=== PATIENT | male | born 1955 | race Caucasian/White ===

== ENCOUNTER → 2017-09-28 13:35 | Outpatient (POV) | payer OTHER, SELFPAY | PROVIDERS: Visit Provider Internal Medicine Nephrology | DX: Z00.00 Encounter for general adult medical examination without abnormal findings (principal) ==

== ENCOUNTER 2018-03-28 16:28 | Inpatient (IN) ==
[2018-03-28 16:46] LABS: Basophils # 0.1 K/mm3 (0-0.2); Basophils % 0.8 % (0.1-2.0); Eosinophils # 0.2 K/mm3 (0.0-0.4); Eosinophils % 2.4 % (0.1-12.0); Lymphocytes # 1.3 K/mm3 (0.7-4.5); Lymphocytes % 13.8 K/mm3 (10-50); Mean Corpuscular Hemoglobin 28.5 pg (27.0-31.2); Mean Corpuscular Volume 89.2 fl (80-94); Mean Platelet Volume 9.3 fl (7.4-10.4); Monocytes # 0.6 K/mm3 (0.1-1.0); Neutrophils # 7.1 K/mm3 (1.8-7.8); Neutrophils % 77.1 % (37.0-80.0); Platelet Count 327 K/mm3 (142-424); Red Cell Distribution Width 15.2 % (11.5-17.5); White Blood Count 9.2 K/mm3 (4.8-10.8)
[2018-03-28 16:51] LABS: Hemoglobin 6.6 g/dL (14.1-18.0)
[2018-03-28 16:52] LABS: Hematocrit 20.5 % (42.0-52.0)
[2018-03-28 16:56] LABS: Albumin Level 3.4 gm/dL (3.4-5.0); Bilirubin,Total 0.3 mg/dL (0.2-1.0); Calcium 8.4 mg/dL (8.5-10.1); Globulin 3.4 gm/dl (1.3-3.2); Total Protein,Serum 6.8 gm/dL (6.4-8.2)
--- NOTE | 2018-03-28 17:01 | Emergency Department Note ---
ED Disposition Clinical Impression: Upper GI bleed, CVA, old, cognitive deficits Disposition: Still a Patient Condition on Discharge: Fair - Critical Care Critical Care Time: No Attestation: On , the high probability of a clinically significant, sudden or life threatening deterioration of the following system(s) required my full and direct attention, intervention and personal management. The time I documented below is in addition to time spent performing reported procedures but includes the following listed in this critical care notation. Medical Decision Making - Lalo Inquiry Pt receiving controlled substance: No Lalo was queried for this patient: No Vital Signs: 03/28/18 16:28 03/28/18 17:07 Temperature 97.8 F Temperature Source Oral Pulse Rate [Left Radial] 80 78 Respiratory Rate 20 Blood Pressure [Right Arm] 129/56 L 117/66 Blood Pressure Mean [Right Arm] 80 83 Blood Pressure Source [Right Arm] Automatic Cuff Automatic Cuff Blood Pressure Position [Right Arm] Sitting Sitting 02 Sat by Pulse Oximetry 100 100 Oxygen Delivery Method Room Air Room Air - Lab Data Lab Results 03/28/18 16:25: WBC 9.2, RBC 2.30 L, Hgb 6.6 L*, Hct 20.5 L*, MCV 89.2, MCH 28.5, MCHC 32.0, RDW 15.2, Plt Count 327, MPV 9.3, Neut % (Auto) 77.1, Lymph % (Auto) 13.8, [place] % (Auto) 6.0, Eos % (Auto) 2.4, Baso % (Auto) 0.8, Neut # (Auto) 7.1, Lymph # (Auto) 1.3, [place] # (Auto) 0.6, Eos # (Auto) 0.2, Baso # (Auto) 0.1 03/28/18 16:25: Sodium 138, Potassium 4.0, Chloride 106, Carbon Dioxide 18 L, Anion Gap 18.0 H, BUN 106 H*, Creatinine 1.97 H, Estimated Creat Clear 51, Estimated GFR 35 L, Est GFR ( Amer) 42 L, Glucose 113 H, Calcium 8.4 L, Total Bilirubin 0.3, AST 14 L, ALT 25, Alkaline Phosphatase 65, Total Protein 6.8, Albumin 3.4, Globulin 3.4 H, Albumin/Globulin Ratio 1.0 L 03/28/18 16:25: PT 10.7, INR 1.04, APTT 21.9 L 03/28/18 16:25: Magnesium 2.5 H 03/28/18 16:36: POC Glucose 120 H 03/28/18 16:55: Stool Occult Blood Positive A Result diagrams: 03/28/18 16:25 03/28/18 16:25 Orders (Tests/Meds): ED MEDICATIONS Generic Name Dose Route Start Last Admin Trade Name Freq PRN Reason Stop Dose Admin Pantoprazole Sodium 80 mg/ 100 mls @ 10 mls/hr 03/28/18 17:00 Sodium Chloride IV 03/31/18 16:59 .Q10H HANNY Pantoprazole Sodium 80 mg/ 100 mls @ 100 mls/hr 03/28/18 17:07 Sodium Chloride IV 03/28/18 18:06 ONCE ONE Discontinued Medications Generic Name Dose Route Start Last Admin Trade Name Freq PRN Reason Stop Dose Admin Famotidine 20 mg 03/28/18 16:56 03/28/18 17:23 Pepcid 20mg/2ml Vial IV 03/28/18 16:57 20 mg ONCE ONE Administration Pantoprazole Sodium 80 mg/ 100 mls @ 10 mls/hr 03/28/18 17:57 Sodium Chloride IV 03/31/18 17:56 .Q10H HANNY Pantoprazole Sodium 80 mg/ 100 mls @ 100 mls/hr 03/28/18 16:56 03/28/18 17:01 Sodium Chloride IV 03/28/18 17:55 Not Given ONCE ONE ORDERS Category Date Time Status Red Blood Cells Stat BBK 03/28/18 16:57 Ordered Type and Screen Stat BBK 03/28/18 16:57 Ordered Acute abdomen XR series [XR acute abdomen series] Stat Exams 03/28/18 16:56 Taken Occult Blood,Stool Stat Lab 03/28/18 16:55 Ordered Medical Decision Narrative: I spoke with Dr. Beard the surgeon who recommended for the patient to be n.p.o. after midnight for endoscopy at 7 AM[address] I spoke with Dr. boyer who agreed to admit the patient for stepdown bed. The patient is unsure of his date of which is causing some confusion regarding his blood. I have been no old records on him due to this incorrect identified. Weakness HPI - General Chief complaint: Weakness Stated complaint: Weakness Time Seen by Provider: 03/28/18 16:30 Mode of Arrival: EMS Limitations: Physical Limitations Description of Symptoms (Recalled from ER Triage Doc. by RN): Pt states that he was feeling really weak. Per EMS pt was really pale and lethargic upon arrival, pt was given bolus of NS and thimine and pt is A&O at this time with pinkish color. Pt states he hasnt ate in 3 days but he has still be taking his insulin - History of Present Illness HPI Narrative: 63 years old white male with a history of strokes who has been lacking appetite for the past 3 days and gradually getting weak. Upon EMS arrival his blood pressure was 90/60 mmhg was given 1 L of fluid with elevation of his blood pressure at 125/65mmhg patient feels better and has a better appetite. He continues to take his insulin with no hypoglycemia. He denies having chest pain abdominal pain nausea vomiting hematemesis coffee- ground emesis melanotic stool or bleeding per rectum. MD Complaint: generalized weakness Onset (ago): day(s) (3-day.) Duration: constant Location: generalized Severity: mild Relieving factors: none Exacerbating factors: none Associated symptoms: denies other symptoms - Related Data Allergies Allergy/AdvReac Type Severity Reaction Status Date / Time Penicillins Allergy Verified 03/28/18 16:38 [facility] History I have reviewed the patient's past medical history: Yes Medical History: Reports:: Diabetes Mellitus Type 2 Denies:: Diabetes Mellitus Type 1 - Social History Alcohol Intake: never - Psychiatric History Expresses thoughts of harming self/others: None Suicide Plan Description: No Plan ROS Obtained: Yes All systems reviewed & no additional complaints Physical Exam - General General appearance: alert, in no apparent distress - Head Head exam: atraumatic, normocephalic, normal inspection - Eye Eye exam: Present: normal appearance, PERRL, EOMI. Absent: scleral icterus - ENT ENT exam: Present: normal exam, normal oropharynx, mucous membranes moist, TM's normal bilaterally, normal external ear exam - Neck Neck exam: Present: normal inspection, full ROM, trachea midline. Absent: tenderness, meningismus, lymphadenopathy - Chest Chest inspection: Present: normal inspection, symmetric chest wall rise. Absent: tenderness - Respiratory Respiratory exam: Present: normal lung sounds bilaterally. Absent: respiratory distress - Cardiovascular Cardiovascular exam: Present: regular rate, normal rhythm, normal heart sounds. Absent: JVD - Abdominal Exam Abdominal exam: Present: soft, normal bowel sounds. Absent: distention, tenderness, guarding, rebound, rigidity - Rectal Exam Rectal exam: Present: normal inspection, normal rectal tone, heme (+) stool, normal prostate. Absent: fecal impaction, hemorrhoids, mass, tenderness, prostate tenderness - Extremities Exam Extremities exam: Present: normal inspection, full ROM, normal capillary refill. Absent: calf tenderness - Back Exam Back exam: Present: normal inspection. Absent: tenderness, CVA tenderness (R), CVA tenderness (L), muscle spasm, paraspinal tenderness, vertebral tenderness - Neurological Exam Neurological exam: Present: alert, oriented X3, CN II-XII intact, normal gait, motor sensory deficit, reflexes normal - Psychiatric Psychiatric exam: Present: normal affect, normal mood - Skin Skin exam: Present: warm, dry, intact, normal color - Lymphatic Lymphatic Findings: no adenopathy
[2018-03-28 17:14] LABS: Activated Partial Thrombo Time 21.9 seconds (23.6-34.0); INR 1.04 (0.9-1.1); Prothrombin Time 10.7 seconds (9.4-11.8)
[2018-03-29 00:51] LABS: Hemoglobin 8.4 g/dL (14.1-18.0)
[2018-03-29 00:52] LABS: Hematocrit 25.1 % (42.0-52.0)
[2018-03-29 05:37] LABS: Basophils # 0.1 K/mm3 (0-0.2); Basophils % 0.8 % (0.1-2.0); Eosinophils # 0.1 K/mm3 (0.0-0.4); Eosinophils % 2.2 % (0.1-12.0); Hemoglobin 8.5 g/dL (14.1-18.0); Lymphocytes % 15.9 K/mm3 (10-50); Mean Corpuscular HGB Conc 33.1 g/dL (31.8-35.4); Mean Corpuscular Hemoglobin 28.4 pg (27.0-31.2); Monocytes # 0.4 K/mm3 (0.1-1.0); Monocytes % 6.5 % (1.7-9.3); Neutrophils # 4.5 K/mm3 (1.8-7.8); Neutrophils % 74.6 % (37.0-80.0); Platelet Count 252 K/mm3 (142-424); Red Blood Count 2.98 M/mm3 (4.60-6.20); Red Cell Distribution Width 16.1 % (11.5-17.5)
[2018-03-29 05:39] LABS: Hematocrit 25.6 % (42.0-52.0)
[2018-03-29 05:45] LABS: Anion Gap 14.9 mEq/L (5-15); Calcium 8.5 mg/dL (8.5-10.1); Potassium 3.9 mmoL/L (3.5-5.1)
--- NOTE | 2018-03-29 06:23 | Consult Report ---
*Admission Date: 03/28/18 *Chief complaint: weakness *History of present illness: This is a 63-year-old gentleman seen in consultation from his primary service after presenting to the emergency department with weakness. Evaluation revealed significant anemia and heme positive stools. Surgical service was consulted for evaluation. Please see forwarded copy of HPI from emergency department evaluation below: 63 years old white male with a history of strokes who has been lacking appetite for the past 3 days and gradually getting weak. Upon EMS arrival his blood pressure was 90/60 mmhg was given 1 L of fluid with elevation of his blood pressure at 125/65mmhg patient feels better and has a better appetite. He continues to take his insulin with no hypoglycemia. He denies having chest pain abdominal pain nausea vomiting hematemesis coffee- ground emesis melanotic stool or bleeding per rectum. Review of Systems - Constitutional Reports anorexia - Eyes Denies itchy eyes - ENT Denies change in voice - *Cardiovascular Denies chest pain - *Respiratory Denies cough - *Gastrointestinal Denies abdominal pain, Denies nausea, Denies vomiting - *Genitourinary Denies blood in urine - *Musculoskeletal Denies joint swelling - *Neurologic Reports abnormal walking, Reports unsteadiness - Psychiatric Denies anxiety - Endocrine Denies cold intolerance - Hematologic/Lymphatic Denies easy bleeding - Allergic/Immunologic Denies GI upset with certain foods [facility] History Medical History: Reports:: Diabetes Mellitus Type 2 Denies:: Cancer, Diabetes Mellitus Type 1, MRSA Amputation: No Fractures: No - *Social History Educational Level: Attended High School Smoking Status: Former smoker Alcohol Intake: former Occupational Status: unemployed - Psychiatric History Expresses thoughts of harming self/others: None Suicide Plan Description: No Plan Meds Home Medications Medication Instructions Recorded Confirmed Type Atorvastatin Calcium [Atorvastatin 80 mg PO HS 03/28/18 03/28/18 History 80mg Tab] Canagliflozin [Invokana] 300 mg PO DAILY 03/28/18 03/28/18 History Carvedilol [Carvedilol 12.5mg Tab] 12.5 mg PO DAILY 03/28/18 03/28/18 History Clopidogrel Bisulfate [Plavix 75mg 75 mg PO DAILY 03/28/18 03/28/18 History Tab] Fluoxetine HCl [Prozac] 40 mg PO DAILY 03/28/18 03/28/18 History Gemfibrozil 600 mg PO DAILY 03/28/18 03/28/18 History Insulin NPH Hum/Reg Insulin Hm 100 unit SQ BID 03/28/18 03/28/18 History [Humulin 70/30 Kwikpen] Lisinopril/Hydrochlorothiazide 1 tab PO DAILY 03/28/18 03/28/18 History [Lisinopril-Hctz 20-12.5 mg Tab] glipiZIDE [Glucotrol XL 5mg tablet] 5 mg PO DAILY 03/28/18 03/28/18 History Allergies Allergy/AdvReac Type Severity Reaction Status Date / Time Penicillins Allergy Verified 03/28/18 16:38 Exam Vital signs and Labs for Last 24 Hours: Temp Pulse Resp BP Pulse Ox 97.4 F L 80 17 113/58 L 100 03/29/18 00:23 03/29/18 04:00 03/29/18 00:23 03/29/18 02:00 03/29/18 03:14 Laboratory Results - last 24 hr 03/28/18 16:25: WBC 9.2, RBC 2.30 L, Hgb 6.6 L*, Hct 20.5 L*, MCV 89.2, MCH 28.5, MCHC 32.0, RDW 15.2, Plt Count 327, MPV 9.3, Neut % (Auto) 77.1, Lymph % (Auto) 13.8, [place] % (Auto) 6.0, Eos % (Auto) 2.4, Baso % (Auto) 0.8, Neut # (A uto) 7.1, Lymph # (Auto) 1.3, [place] # (Auto) 0.6, Eos # (Auto) 0.2, Baso # (Auto) 0.1 03/28/18 16:25: Sodium 138, Potassium 4.0, Chloride 106, Carbon Dioxide 18 L, Anion Gap 18.0 H, BUN 106 H*, Creatinine 1.97 H, Estimated Creat Clear 51, Estimated GFR 35 L, Est GFR ( Amer) 42 L, Glucose 113 H, Calcium 8.4 L, Total Bilirubin 0.3, AST 14 L, ALT 25, Alkaline Phosphatase 65, Total Protein 6.8, Albumin 3.4, Globulin 3.4 H, Albumin/Globulin Ratio 1.0 L 03/28/18 16:25: PT 10.7, INR 1.04, APTT 21.9 L 03/28/18 16:25: Magnesium 2.5 H 03/28/18 16:36: POC Glucose 120 H 03/28/18 16:55: Stool Occult Blood Positive A 03/28/18 18:40: Blood Type AB Positive, Antibody Screen Negative, Crossmatch (AHG) See Detail 03/28/18 20:52: POC Glucose 160 H 03/29/18 00:30: Hgb 8.4 L D, Hct 25.1 L 03/29/18 05:21: WBC 6.0 D, RBC 2.98 L D, Hgb 8.5 L, Hct 25.6 L, MCV 86.0, MCH 28.4, MCHC 33.1, RDW 16.1, Plt Count 252, MPV 10.0, Neut % (Auto) 74.6, Lymph % (Auto) 15.9, [place] % (Auto) 6.5, Eos % (Auto) 2.2, Baso % (Auto) 0.8, Neut # (Auto) 4.5, Lymph # (Auto) 1.0, [place] # (Auto) 0.4, Eos # (Auto) 0.1, Baso # (Auto) 0.1 03/29/18 05:21: Sodium 141, Potassium 3.9, Chloride 110 H, Carbon Dioxide 20 L, Anion Gap 14.9, BUN 78 H D, Creatinine 1.82 H, Estimated Creat Clear 54, Estimated GFR 38 L, Est GFR ( Amer) 46 L, Glucose 161 H D, Calcium 8.5 I & O for Last 24 hours: Intake & Output 03/26/18 03/27/18 03/28/18 03/29/18 11:59 11:59 11:59 11:59 Intake Total 216 / 216 Output Total 1940 / 194 Balance -1724 / -1724 Weight 198 lb 8 oz - Constitutional no acute distress - *Routine Respiratory Exam Absent: respiratory distress - *Routine Cardiovascular Exam Present: RRR - *Routine Abdominal Exam Present: soft Results - Labs 03/29/18 05:21 03/29/18 05:21 Laboratory Results - last 24 hr 03/28/18 16:25: WBC 9.2, RBC 2.30 L, Hgb 6.6 L*, Hct 20.5 L*, MCV 89.2, MCH 28.5, MCHC 32.0, RDW 15.2, Plt Count 327, MPV 9.3, Neut % (Auto) 77.1, Lymph % (Auto) 13.8, [place] % (Auto) 6.0, Eos % (Auto) 2.4, Baso % (Auto) 0.8, Neut # (Auto) 7.1, Lymph # (Auto) 1.3, [place] # (Auto) 0.6, Eos # (Auto) 0.2, Baso # (Auto) 0.1 03/28/18 16:25: Sodium 138, Potassium 4.0, Chloride 106, Carbon Dioxide 18 L, Anion Gap 18.0 H, BUN 106 H*, Creatinine 1.97 H, Estimated Creat Clear 51, Estimated GFR 35 L, Est GFR ( Amer) 42 L, Glucose 113 H, Calcium 8.4 L, Total Bilirubin 0.3, AST 14 L, ALT 25, Alkaline Phosphatase 65, Total Protein 6.8, Albumin 3.4, Globulin 3.4 H, Albumin/Globulin Ratio 1.0 L 03/28/18 16:25: PT 10.7, INR 1.04, APTT 21.9 L 03/28/18 16:25: Magnesium 2.5 H 03/28/18 16:36: POC Glucose 120 H 03/28/18 16:55: Stool Occult Blood Positive A 03/28/18 18:40: Blood Type AB Positive, Antibody Screen Negative, Crossmatch (AHG) See Detail 03/28/18 20:52: POC Glucose 160 H 03/29/18 00:30: Hgb 8.4 L D, Hct 25.1 L 03/29/18 05:21: WBC 6.0 D, RBC 2.98 L D, Hgb 8.5 L, Hct 25.6 L, MCV 86.0, MCH 2 8.4, MCHC 33.1, RDW 16.1, Plt Count 252, MPV 10.0, Neut % (Auto) 74.6, Lymph % (Auto) 15.9, [place] % (Auto) 6.5, Eos % (Auto) 2.2, Baso % (Auto) 0.8, Neut # (Auto) 4.5, Lymph # (Auto) 1.0, [place] # (Auto) 0.4, Eos # (Auto) 0.1, Baso # (Auto) 0.1 03/29/18 05:21: Sodium 141, Potassium 3.9, Chloride 110 H, Carbon Dioxide 20 L, Anion Gap 14.9, BUN 78 H D, Creatinine 1.82 H, Estimated Creat Clear 54, Estimated GFR 38 L, Est GFR ( Amer) 46 L, Glucose 161 H D, Calcium 8.5 Assessment and Plan (1) Gastrointestinal hemorrhage Current visit: Yes Status: Acute Category: Medical Code(s): K92.2 - Gastrointestinal hemorrhage, unspecified Continue to hold Plavix for now Serial hemoglobin as ordered by primary service Esophagogastroduodenoscopy scheduled for 7:00 this morning. The patient seemingly understands the risks and benefits and agrees to proceed.
--- NOTE | 2018-03-29 07:06 | Progress Note ---
[facility] Anesthesia Checklist - Patient Identification Patient Identification: Arm Band, Verbal (Name & ) - Structural Data Admitted From: Inpatient Planned Operative Procedure/s: Colonoscopy Consent for Planned Operative Procedure(s) Verified: Yes Verified Documents: Surgical Consent, History and Physical - NPO Status Verified Time NPO: 00:00 - Additional verifications Fingerstick Blood Glucose: 165 Anesthesia Reactions: No - Airway Assessment C-Spine Mobility Assessed: Yes TMJ Mobility Assessed: Yes Dentition: Edentulous - Neurological Assessment Level of Consciousness: Awake Hx Seizures: No Numbness or tingling in extremities: No - Anesthesia Plan Anesthesia Risk discussed: Yes Anesthesia Plan: Verified ASA Class: II Anesthesia Type: MAC [facility] History I have reviewed the patient's past medical history: Yes Medical History: Reports:: Cerebrovascular Accident (CVAx4 (last was 2 years ago)), Diabetes Mellitus Type 2, Hypertension Denies:: Cancer, Diabetes Mellitus Type 1, MRSA Other Surgeries: Yes: No Previous Surgery Amputation: No Fractures: No - *Social History Educational Level: Attended High School Smoking Status: Former smoker Alcohol Intake: former Occupational Status: unemployed - Psychiatric History Expresses thoughts of harming self/others: None Suicide Plan Description: No Plan
--- NOTE | 2018-03-29 07:31 | Procedure Note ---
- Procedure: Date: 03/29/18 Procedure Performed:: Esophagogastroduodenoscopy with biopsy Indications:: Gastrointestinal hemorrhage Performing Provider:: Rui Beard MD Referring Provider:: Dr. Giles Sedation:: Monitored anesthesia care Procedure:: After informed consent was obtained the patient was taken to the endoscopy suite. Sedation ensued after the patient was transferred to the left lateral decubitus position. Pulse, blood pressure, and oxygen saturation were monitored throughout the procedure. The endoscope was advanced beyond the duodenal bulb. Retroflexion within the gastric lumen was accomplished. The gastroscope was carefully removed and the patient was transferred to recovery in stable condition. Please see "findings" and "specimens" below for detail. Findings:: GE junction at 42 cm Mild gastritis Gastric cardia polyp Lobulated duodenitis Mild bile reflux Specimens:: Duodenal bulb biopsies (lobulated duodenitis) Antral biopsy Gastric cardia polyp biopsies Recommendations:: Follow-up pending pathology Ongoing evaluation with regard to gastrointestinal hemorrhage Complications:: No immediate Estimated blood obtained (mL): 1
--- NOTE | 2018-03-29 07:53 | Pharmacy Consult Notes ---
[facility] Pharmacy VTE Monitoring - Patient Demographics Admission date: 03/29/18 Report Date: 03/29/18 Time: 07:53 Allergies/Adverse Reactions: Patient Allergies Penicillins Allergy (Verified 03/28/18 16:38) Height: 1.83 m Weight: 90.038 kg Patient Problems: Current Active Problems Upper GI bleed (Acute) CVA, old, cognitive deficits (Acute) Gastrointestinal hemorrhage (Acute) - VTE Risk Labs: VTE Related Lab Results Hgb 8.5 g/dL (14.1-18.0) L 03/29/18 05:21 Hct 25.6 % (42.0-52.0) L 03/29/18 05:21 Plt Count 252 K/mm3 (142-424) 03/29/18 05:21 PT 10.7 seconds (9.4-11.8) 03/28/18 16:25 INR 1.04 (0.9-1.1) 03/28/18 16:25 APTT 21.9 seconds (23.6-34.0) L 03/28/18 16:25 BUN 78 mg/dL (7-18) H D 03/29/18 05:21 Creatinine 1.82 mg/dL (0.70-1.30) H 03/29/18 05:21 Estimated Creat Clear 54 mL/min (0-300) 03/29/18 05:21 Was VTE Risk Assessment Performed: Yes VTE Score: 1 VTE Risk Level: Very Low Risk Clinical Trial Participant: No - Prophylaxis VTE Prophylaxis Ordered?: Yes Types of VTE Prophylaxis: TEDS Knee High
--- NOTE | 2018-03-29 08:46 | History & Physical Report ---
*Admission Date: 03/29/18 <Lorena Murphy 03/29/18 08:46> *Chief complaint: Dizziness and unable to walk <KatherineLorena 03/29/18 08:46> *History of present illness: Mr. Lopez is a 63-year-old male with a history of diabetes hypertension and CVA who presented to [facility] via ambulance after inability to walk and weakness. He states that he has been dizzy for the past 3 days. He states he did vomit 3 days ago and is vomitus was black. He denies any diar argelia,, hematemesis, radha bleeding or melena. He states that his mid abdomen did hurt. With evaluation in the emergency room hemoglobin was found to be low and he received 2 units of packed red blood cells. He was then admitted for further evaluation and treatment. He has had an EGD this morning by Dr. Yu and was noted to have a gastritis and no active bleeding. Patient denies abdominal pain this morning. He is not nauseated and is very hungry and would like breakfast. <Lorena Murphy 03/29/18 09:02> [facility] History Medical History: Reports:: Cerebrovascular Accident (CVAx4 (last was 2 years ago)), Depression, Diabetes Mellitus Type 2, Hypertension Denies:: Cancer, Diabetes Mellitus Type 1, MRSA, Seizures <Lorena Murphy 03/29/18 09:02> Other Surgeries: Yes: No Previous Surgery <Lorena Murphy 03/29/18 08:46> Amputation: No <Lorena Murphy 03/29/18 08:46> Fractures: No <Lorena Murphy 03/29/18 08:46> Comment: Right arm reconstruction 1992; teeth extracted 02/2013 <Lorena Murphy 03/29/18 09:02> - *Social History Educational Level: Attended High School <Lorena Murphy 03/29/18 08:46> Smoking Status: Former smoker <Lorena Murphy 03/29/18 08:46> Alcohol Intake: former <Lorena Murphy 03/29/18 08:46> Occupational Status: unemployed <Lorena Murphy 03/29/18 08:46> - Psychiatric History Expresses thoughts of harming self/others: None <Lorena Murphy 03/29/18 08:46> Suicide Plan Description: No Plan <Lorena Murphy 03/29/18 08:46> Comment: History of mental illnesses <Lorena Murphy 03/29/18 09:02> Review of Systems - Constitutional Reports fatigue, Reports lack of energy, Reports weakness, Denies body ache(s) <Lorena Murphy 03/29/18 09:02> - ENT Reports dizziness, Denies ear pain, Denies sore throat <Lorena Murphy 03/29/18 09:02> - *Cardiovascular Denies chest pain, Denies irregular heart rhythm, Denies foot swelling, Denies fast heart rate <Lorena Murphy 03/29/18 09:02> - *Respiratory Denies chest congestion, Denies cough, Denies shortness of breath <Lorena Murphy 03/29/18 09:02> - *Gastrointestinal Reports abdominal pain, Reports coffee ground vomit, Reports black, tarry stools, Reports vomiting, Denies change in bowel habits, Denies change in stools, Denies constipation, Denies heartburn, Denies bright, red blood in stools, Denies nausea <Lorena Murphy 03/29/18 09:02> - *Genitourinary Denies difficulty urinating <Lorena Murphy 03/29/18 09:02> - *Musculoskeletal Reports abnormal walking, Reports muscle weakness, Denies joint pain <Lorena Murphy 03/29/18 09:02> - *Neurologic Reports abnormal walking, Reports unsteadiness, Reports dizziness <Lorena Murphy 03/29/18 09:02> Meds Home Medications Medication Instructions Recorded Confirmed Type Atorvastatin Calcium [Atorvastatin 80 mg PO HS 03/28/18 03/28/18 History 80mg Tab] Canagliflozin [Invokana] 300 mg PO DAILY 03/28/18 03/28/18 History Carvedilol [Carvedilol 12.5mg Tab] 12.5 mg PO BID 03/28/18 03/29/18 History Clopidogrel Bisulfate [Plavix 75mg 75 mg PO DAILY 03/28/18 03/28/18 History Tab] Fluoxetine HCl [Prozac] 40 mg PO DAILY 03/28/18 03/28/18 History Gemfibrozil 600 mg PO BID 03/28/18 03/29/18 History Insulin NPH Hum/Reg Insulin Hm 100 unit SQ BID 03/28/18 03/28/18 History [Humulin 70/30 Kwikpen] Lisinopril/Hydrochlorothiazide 1 tab PO DAILY 03/28/18 03/28/18 History [Lisinopril-Hctz 20-12.5 mg Tab] glipiZIDE [Glucotrol XL 5mg tablet] 5 mg PO DAILY 03/28/18 03/28/18 History <JulyErika - 03/29/18 12:17> Allergies Allergy/AdvReac Type Severity Reaction Status Date / Time Penicillins [PENICILLINS] Allergy Mild Hives Verified 03/29/18 09:36 <JulyErika - 03/29/18 12:17> Exam Vital signs and Labs for Last 24 Hours: Temp Pulse Resp BP Pulse Ox 98.7 F 82 15 117/61 100 03/29/18 09:15 03/29/18 11:45 03/29/18 11:45 03/29/18 11:45 03/29/18 11:45 Laboratory Results - last 24 hr 03/28/18 16:25: WBC 9.2, RBC 2.30 L, Hgb 6.6 L*, Hct 20.5 L*, MCV 89.2, MCH 28.5, MCHC 32.0, RDW 15.2, Plt Count 327, MPV 9.3, Neut % (Auto) 77.1, Lymph % (Auto) 13.8, Mcintosh % (Auto) 6.0, Eos % (Auto) 2.4, Baso % (Auto) 0.8, Neut # (Auto) 7.1, Lymph # (Auto) 1.3, Mcintosh # (Auto) 0.6, Eos # (Auto) 0.2, Baso # (Auto) 0.1 03/28/18 16:25: Sodium 138, Potassium 4.0, Chloride 106, Carbon Dioxide 18 L, Anion Gap 18.0 H, BUN 106 H*, Creatinine 1.97 H, Estimated Creat Clear 51, Estimated GFR 35 L, Est GFR ( Amer) 42 L, Glucose 113 H, Calcium 8.4 L, Total Bilirubin 0.3, AST 14 L, ALT 25, Alkaline Phosphatase 65, Total Protein 6.8, Albumin 3.4, Globulin 3.4 H, Albumin/Globulin Ratio 1.0 L 03/28/18 16:25: PT 10.7, INR 1.04, APTT 21.9 L 03/28/18 16:25: Magnesium 2.5 H 03/28/18 16:36: POC Glucose 120 H 03/28/18 16:55: Stool Occult Blood Positive A 03/28/18 18:40: Blood Type AB Positive, Antibody Screen Negative, Crossmatch (AHG) See Detail 03/28/18 20:52: POC Glucose 160 H 03/29/18 00:30: Hgb 8.4 L D, Hct 25.1 L 03/29/18 05:21: WBC 6.0 D, RBC 2.98 L D, Hgb 8.5 L, Hct 25.6 L, MCV 86.0, MCH 28.4, MCHC 33.1, RDW 16.1, Plt Count 252, MPV 10.0, Neut % (Auto) 74.6, Lymph % (Auto) 15.9, Mcintosh % (Auto) 6.5, Eos % (Auto) 2.2, Baso % (Auto) 0.8, Neut # (Auto) 4.5, Lymph # (Auto) 1.0, Mcintosh # (Auto) 0.4, Eos # (Auto) 0.1, Baso # (Auto) 0.1 03/29/18 05:21: Sodium 141, Potassium 3.9, Chloride 110 H, Carbon Dioxide 20 L, Anion Gap 14.9, BUN 78 H D, Creatinine 1.82 H, Estimated Creat Clear 54, Estimated GFR 38 L, Est GFR ( Amer) 46 L, Glucose 161 H D, Calcium 8.5 03/29/18 07:01: POC Glucose 165 H <Sound,Erika - 03/29/18 12:17> Temp Pulse Resp BP Pulse Ox 98.3 F 77 15 121/65 100 03/29/18 07:45 03/29/18 08:00 03/29/18 08:00 03/29/18 08:00 03/29/18 08:00 Laboratory Results - last 24 hr 03/28/18 16:25: WBC 9.2, RBC 2.30 L, Hgb 6.6 L*, Hct 20.5 L*, MCV 89.2, MCH 28.5, MCHC 32.0, RDW 15.2, Plt Count 327, MPV 9.3, Neut % (Auto) 77.1, Lymph % (Auto) 13.8, Mcintosh % (Auto) 6.0, Eos % (Auto) 2.4, Baso % (Auto) 0.8, Neut # (Auto) 7.1, Lymph # (Auto) 1.3, Mcintosh # (Auto) 0.6, Eos # (Auto) 0.2, Baso # (Auto) 0.1 03/28/18 16:25: Sodium 138, Potassium 4.0, Chloride 106, Carbon Dioxide 18 L, Anion Gap 18.0 H, BUN 106 H*, Creatinine 1.97 H, Estimated Creat Clear 51, Estimated GFR 35 L, Est GFR ( Amer) 42 L, Glucose 113 H, Calcium 8.4 L, Total Bilirubin 0.3, AST 14 L, ALT 25, Alkaline Phosphatase 65, Total Protein 6.8, Albumin 3.4, Globulin 3.4 H, Albumin/Globulin Ratio 1.0 L 03/28/18 16:25: PT 10.7, INR 1.04, APTT 21.9 L 03/28/18 16:25: Magnesium 2.5 H 03/28/18 16:36: POC Glucose 120 H 03/28/18 16:55: Stool Occult Blood Positive A 03/28/18 18:40: Blood Type AB Positive, Antibody Screen Negative, Crossmatch (AHG) See Detail 03/28/18 20:52: POC Glucose 160 H 03/29/18 00:30: Hgb 8.4 L D, Hct 25.1 L 03/29/18 05:21: WBC 6.0 D, RBC 2.98 L D, Hgb 8.5 L, Hct 25.6 L, MCV 86.0, MCH 28.4, MCHC 33.1, RDW 16.1, Plt Count 252, MPV 10.0, Neut % (Auto) 74.6, Lymph % (Auto) 15.9, Mcintosh % (Auto) 6.5, Eos % (Auto) 2.2, Baso % (Auto) 0.8, Neut # (Auto) 4.5, Lymph # (Auto) 1.0, Mcintosh # (Auto) 0.4, Eos # (Auto) 0.1, Baso # (Auto) 0.1 03/29/18 05:21: Sodium 141, Potassium 3.9, Chloride 110 H, Carbon Dioxide 20 L, Anion Gap 14.9, BUN 78 H D, Creatinine 1.82 H, Estimated Creat Clear 54, Estimated GFR 38 L, Est GFR ( Amer) 46 L, Glucose 161 H D, Calcium 8.5 03/29/18 07:01: POC Glucose 165 H <Lorena Murphy - 03/29/18 08:46> I & O for Last 24 hours: Intake & Output 03/27/18 03/28/18 03/29/18 03/30/18 11:59 11:59 11:59 11:59 Intake Total 736 / 736 Output Total 2540 / 2540 Balance -1804 / -1804 Weight 198 lb 8 oz <Erika Mcdowell 03/29/18 12:17> Intake & Output 03/26/18 03/27/18 03/28/18 03/29/18 11:59 11:59 11:59 11:59 Intake Total 736 / 736 Output Total 1940 / 1940 Balance -1204 / -1204 Weight 198 lb 8 oz <Lorena Murphy 03/29/18 08:46> Radiology Reports for the Last 24 Hours: 03/29/2018 CT of abdomen and pelvis IMPRESSION: Nonspecific bowel gas pattern. No free air.No bowel obstruction. No prominent acute findings Localized gas within upper normal caliber small bowel loops, at right abdomen & LLQ.. Nonspecific. Small air-fluid levels noted could reflect slight increased fluid fluid within the small bowel, or possible mild ileus <MurphyLorena 03/29/18 09:02> - Constitutional no acute distress <Lorena Murphy 03/29/18 09:02> Comments: Has just returned from having EGD. Appears comfortable. <MurphyLorena 03/29/18 09:02> - *Routine HEENT Exam Head: Present: normocephalic <Lorena Murphy 03/29/18 09:02> Eye: Present: PERRL. Absent: conjunctival icterus, scleral injection <Lashon Murphyhy 03/29/18 09:02> ENT: Present: mucous membranes moist, oropharynx clear <Lashon Murphyhy 03/29/18 09:02> - *Routine Neck Exam Present: supple, full ROM. Absent: normal carotid upstroke, lymphadenopathy, thyromegaly (Anteriorly and posteriorly) [facility] 03/29/18 09:02> - *Routine Respiratory Exam Present: CTA bilaterally (Anteriorly and posteriorly) <Lashon Murphyhy 03/29/18 09:02> - *Routine Cardiovascular Exam Present: RRR <[facility] 03/29/18 09:02> - *Routine Abdominal Exam Present: soft, normoactive bowel sounds. Absent: tenderness <[facility] 03/29/18 09:02> - *Routine Extremities Exam Absent: edema, calf tenderness <[facility] 03/29/18 09:02> - *Routine Neurological Exam Present: alert, oriented X3 <KatherineLorena 03/29/18 09:02> Assessment and Plan (1) Gastrointestinal hemorrhage Current visit: Yes Status: Acute Category: Medical Code(s): K92.2 - Gastrointestinal hemorrhage, unspecified (2) Diabetes Current visit: Yes Status: Chronic Category: Medical Code(s): E11.9 - Type 2 diabetes mellitus without complications (3) CVA, old, cognitive deficits Current visit: Yes Status: Chronic Category: Medical Code(s): I69.319 - Unspecified symptoms and signs involving cognitive functions following cerebral infarction <Lashon Murphyhy 03/29/18 09:49> (1) Gastrointestinal hemorrhage Current visit: Yes Status: Acute Category: Medical Code(s): K92.2 - Gastrointestinal hemorrhage, unspecified (2) Diabetes Current visit: Yes Status: Chronic Category: Medical Code(s): E11.9 - Type 2 diabetes mellitus without complications (3) CVA, old, cognitive deficits Current visit: Yes Status: Chronic Category: Medical Code(s): I69.319 - Unspecified symptoms and signs involving cognitive functions following cerebral infarction <Erika Mcdowell 03/29/18 12:17> - Assessment and plan all Dx Assessment and Plan for all problems:: Agree with above, will do another H&H check this pm. If normal,, will dc home with outpatient f/u with myself and Dr. Beard for possible colonoscopy. Patient will need protonix and ferrous sulfate scripts prior to discharge. <Erika Mcdowell - 03/29/18 12:17> Monitor H&H; Protonix gtt disc; started on diabetic diet; will move out of step down <Lorena Murphy - 03/29/18 10:19>
[2018-03-29 12:36] LABS: Hematocrit 26.5 % (42.0-52.0); Hemoglobin 8.7 g/dL (14.1-18.0)
--- NOTE | 2018-03-29 13:57 | Discharge Summary ---
General - General Admission date:: 03/28/18 Discharge date: 03/29/18 HPI HPI: Mr. Lopez is a 63-year-old male with a history of diabetes, hypertension and CVA who presented to [facility] via ambulance after inability to walk and weakness. He stated that he had been dizzy for the previous 3 days. He stated that he did vomit 3 days prior to admission and described the vomitus as black. He denies any diarrhea,, hematemesis, radha bleeding or melena. He states that his mid abdomen did hurt. With evaluation in the emergency room hemoglobin was found to be low and he received 2 units of packed red blood cells. He was then admitted for further evaluation and treatment. He had an EGD the AM afer admission by Dr. Yu and was noted to have a gastritis without any active bleeding. Patient denied abdominal pain AM after admission. He is not nauseated and was very hungry for breakfast. Hospital Course Hospital Course: Patient received 2 units of packed red blood cells after admission. Hemoglobin went from 6.6 on admission to 8.7 on the day of discharge. He was seen by surgeon Dr. Yu who performed an EGD on 1014 and noted mild gastritis, duodenitis, and he performed a gastric polypectomy and an atrial biopsy. A.m. after admission patient was feeling well. He had his EGD early in the morning and was hungry. He tolerated his diabetic diet. 12 noon hemoglobin was 8.7. At this point he was stable to be discharged home. Disposition: Patient was discharged home in stable and satisfactory condition. Follow-up with Dr. Yu and Dr. boyer in 1 week. Was to start on iron and Protonix. Objective Vital signs: Temp Pulse Resp BP Pulse Ox 98.7 F 82 15 117/61 100 03/29/18 09:15 03/29/18 11:45 03/29/18 11:45 03/29/18 11:45 03/29/18 11:45 no acute distress - *Routine HEENT Exam Head: Present: normocephalic, atraumatic Eye: Present: PERRL. Absent: conjunctival icterus, scleral injection ENT: Present: mucous membranes moist - *Routine Neck Exam Present: supple. Absent: carotid bruit, lymphadenopathy, thyromegaly - *Routine Respiratory Exam Present: CTA bilaterally (Anteriorly and posteriorly) - *Routine Cardiovascular Exam Present: RRR - *Routine Abdominal Exam Present: soft, normoactive bowel sounds. Absent: tenderness, guarding - *Routine Extremities Exam Absent: edema, calf tenderness - *Routine Neurological Exam Present: alert, oriented X3 Results Completed studies during hospitalization [Text1]: Laboratory Tests 03/29/18 12:27 Hgb 8.7 L Hct 26.5 L Labs on day of discharge: Labs from last 24 hours 03/29/18 03/29/18 03/29/18 12:27 07:01 05:21 WBC RBC Hgb 8.7 L Hct 26.5 L MCV MCH MCHC RDW Plt Count MPV Neut % (Auto) Lymph % (Auto) Archer % (Auto) Eos % (Auto) Baso % (Auto) Neut # (Auto) Lymph # (Auto) Archer # (Auto) Eos # (Auto) Baso # (Auto) PT INR APTT Sodium 141 Potassium 3.9 Chloride 110 H Carbon Dioxide 20 L Anion Gap 14.9 BUN 78 H D Creatinine 1.82 H Estimated Creat Clear 54 Estimated GFR 38 L Est GFR ( Amer) 46 L Glucose 161 H D POC Glucose 165 H Calcium 8.5 Magnesium Total Bilirubin AST ALT Alkaline Phosphatase Total Protein Albumin Globulin Albumin/Globulin Ratio Stool Occult Blood Blood Type Antibody Screen Crossmatch ([facility]) 03/29/18 03/29/18 03/28/18 05:21 00:30 20:52 WBC 6.0 D RBC 2.98 L D Hgb 8.5 L 8.4 L D Hct 25.6 L 25.1 L MCV 86.0 MCH 28.4 MCHC 33.1 RDW 16.1 Plt Count 252 MPV 10.0 Neut % (Auto) 74.6 Lymph % (Auto) 15.9 Archer % (Auto) 6.5 Eos % (Auto) 2.2 Baso % (Auto) 0.8 Neut # (Auto) 4.5 Lymph # (Auto) 1.0 Archer # (Auto) 0.4 Eos # (Auto) 0.1 Baso # (Auto) 0.1 PT INR APTT Sodium Potassium Chloride Carbon Dioxide Anion Gap BUN Creatinine Estimated Creat Clear Estimated GFR Est GFR ( Amer) Glucose POC Glucose 160 H Calcium Magnesium Total Bilirubin AST ALT Alkaline Phosphatase Total Protein Albumin Globulin Albumin/Globulin Ratio Stool Occult Blood Blood Type Antibody Screen Crossmatch ([facility]) 03/28/18 03/28/18 03/28/18 18:40 16:55 16:36 WBC RBC Hgb Hct MCV MCH MCHC RDW Plt Count MPV Neut % (Auto) Lymph % (Auto) Archer % (Auto) Eos % (Auto) Baso % (Auto) Neut # (Auto) Lymph # (Auto) Archer # (Auto) Eos # (Auto) Baso # (Auto) PT INR APTT Sodium Potassium Chloride Carbon Dioxide Anion Gap BUN Creatinine Estimated Creat Clear Estimated GFR Est GFR ( Amer) Glucose POC Glucose 120 H Calcium Magnesium Total Bilirubin AST ALT Alkaline Phosphatase Total Protein Albumin Globulin Albumin/Globulin Ratio Stool Occult Blood Positive A Blood Type AB Positive Antibody Screen Negative Crossmatch ([facility]) See Detail 03/28/18 03/28/18 03/28/18 16:25 16:25 16:25 WBC RBC Hgb Hct MCV MCH MCHC RDW Plt Count MPV Neut % (Auto) Lymph % (Auto) Archer % (Auto) Eos % (Auto) Baso % (Auto) Neut # (Auto) Lymph # (Auto) Archer # (Auto) Eos # (Auto) Baso # (Auto) PT 10.7 INR 1.04 APTT 21.9 L Sodium 138 Potassium 4.0 Chloride 106 Carbon Dioxide 18 L Anion Gap 18.0 H BUN 106 H* Creatinine 1.97 H Estimated Creat Clear 51 Estimated GFR 35 L Est GFR ( Amer) 42 L Glucose 113 H POC Glucose Calcium 8.4 L Magnesium 2.5 H Total Bilirubin 0.3 AST 14 L ALT 25 Alkaline Phosphatase 65 Total Protein 6.8 Albumin 3.4 Globulin 3.4 H Albumin/Globulin Ratio 1.0 L Stool Occult Blood Blood Type Antibody Screen Crossmatch ([facility]) 03/28/18 16:25 WBC 9.2 RBC 2.30 L Hgb 6.6 L* Hct 20.5 L* MCV 89.2 MCH 28.5 MCHC 32.0 RDW 15.2 Plt Count 327 MPV 9.3 Neut % (Auto) 77.1 Lymph % (Auto) 13.8 Archer % (Auto) 6.0 Eos % (Auto) 2.4 Baso % (Auto) 0.8 Neut # (Auto) 7.1 Lymph # (Auto) 1.3 Archer # (Auto) 0.6 Eos # (Auto) 0.2 Baso # (Auto) 0.1 PT INR APTT Sodium Potassium Chloride Carbon Dioxide Anion Gap BUN Creatinine Estimated Creat Clear Estimated GFR Est GFR ( Amer) Glucose POC Glucose Calcium Magnesium Total Bilirubin AST ALT Alkaline Phosphatase Total Protein Albumin Globulin Albumin/Globulin Ratio Stool Occult Blood Blood Type Antibody Screen Crossmatch (AHG) DS: Diagnosis - Discharge Diagnosis (1) Gastrointestinal hemorrhage Status: Acute (2) Diabetes Status: Chronic (3) CVA, old, cognitive deficits Status: Chronic Discharge Plan - Patient Discharge Instructions ACTIVITY: Continue current activity DIET: continue same diet Patient Instructions: Blood Transfusion, Gastrointestinal Bleeding - Follow up Plan Follow up with: Erika Boyer MD [Staff Physician] - 1 week Rui Beard MD [Staff Physician] - 1 week Disposition: Home, Self-Nursing Home Medications: Home Medications Medication Instructions Recorded Confirmed Type Atorvastatin Calcium [Atorvastatin 80 mg PO HS 03/28/18 03/28/18 History 80mg Tab] Canagliflozin [Invokana] 300 mg PO DAILY 03/28/18 03/28/18 History Carvedilol [Carvedilol 12.5mg Tab] 12.5 mg PO BID 03/28/18 03/29/18 History Clopidogrel Bisulfate [Plavix 75mg 75 mg PO DAILY 03/28/18 03/28/18 History Tab] Fluoxetine HCl [Prozac] 40 mg PO DAILY 03/28/18 03/28/18 History Gemfibrozil 600 mg PO BID 03/28/18 03/29/18 History Lisinopril/Hydrochlorothiazide 1 tab PO DAILY 03/28/18 03/28/18 History [Lisinopril-Hctz 20-12.5 mg Tab] glipiZIDE [Glucotrol XL 5mg tablet] 5 mg PO DAILY 03/28/18 03/28/18 History Prescriptions/Medication Reconciliation: New Insulin Lispro [HumaLOG 100 units/mL 3mL vial (SSI)] 100 unit SQ BID 30 Days #60 ml Ferrous Sulfate [Ferrous Sulfate 325mg Tablet] 325 mg PO BID 30 Days #60 tablet Pantoprazole Sodium [Protonix 40mg tablet] 40 mg PO DAILY 30 Days #30 tablet. Continue Lisinopril/Hydrochlorothiazide [Lisinopril-Hctz 20-12.5 mg Tab] 1 tab PO DAILY glipiZIDE [Glucotrol XL 5mg tablet] 5 mg PO DAILY Gemfibrozil 600 mg PO BID Clopidogrel Bisulfate [Plavix 75mg Tab] 75 mg PO DAILY Canagliflozin [Invokana] 300 mg PO DAILY Atorvastatin Calcium [Atorvastatin 80mg Tab] 80 mg PO HS Carvedilol [Carvedilol 12.5mg Tab] 12.5 mg PO BID Fluoxetine HCl [Prozac] 40 mg PO DAILY Discontinued Insulin NPH Hum/Reg Insulin Hm [Humulin 70/30 Kwikpen] 100 unit SQ BID
[2018-03-29 15:55] VITALS: BP 114/56
== END 2018-03-29 16:31 | disposition home or self-care (01) ==
LOC: EDBD → ER 16:28 → MERGE 18:02 → 2ND 18:02
PROVIDERS: ADMIT Emergency Medicine; ATTEND Emergency Medicine

== ENCOUNTER 2018-03-30 18:03 | Observation (INO) ==
--- NOTE | 2018-03-30 18:15 | Emergency Department Note ---
ED Disposition Clinical Impression: Hypoglycemia, Upper GI bleeding, IDDM (insulin dependent diabetes mellitus), CVA, old, alterations of sensations, Elevated troponin Disposition: Still a Patient Condition on Discharge: Fair - Critical Care Critical Care Time: No Attestation: On 03/30/18, the high probability of a clinically significant, sudden or life threatening deterioration of the following system(s) required my full and direct attention, intervention and personal management. The time I documented below is in addition to time spent performing reported procedures but includes the following listed in this critical care notation. Medical Decision Making - Lalo Inquiry Pt receiving controlled substance: No Lalo was queried for this patient: No Vital Signs: 03/30/18 18:04 03/30/18 19:04 03/30/18 20:00 Temperature 98.2 F Temperature Source Oral Pulse Rate [Right Radial] 74 77 78 Respiratory Rate 15 18 Blood Pressure [Right Arm] 152/66 H 139/62 152/63 H Blood Pressure Mean [Right Arm] 94 87 92 Blood Pressure Source [Right Arm] Automatic Cuff Automatic Cuff Blood Pressure Position [Right Arm] Supine Supine 02 Sat by Pulse Oximetry 99 100 100 Oxygen Delivery Method Room Air Room Air - Lab Data Lab Results 03/30/18 18:07: POC Glucose 91 03/30/18 18:20: Stool Occult Blood Positive A 03/30/18 19:15: POC Glucose 167 H 03/30/18 19:40: WBC 8.1 D, RBC 3.35 L, Hgb 9.5 L, Hct 29.2 L, MCV 87.2, MCH 28.3, MCHC 32.5, RDW 16.4, Plt Count 333 D, MPV 8.8, Neut % (Auto) 79.9, Lymph % (Auto) 11.0, [place] % (Auto) 6.1, Eos % (Auto) 2.6, Baso % (Auto) 0.5, Neut # (Auto) 6.5, Lymph # (Auto) 0.9, [place] # (Auto) 0.5, Eos # (Auto) 0.2, Baso # (Auto) 0.0 03/30/18 19:40: Sodium 136, Potassium 4.7 D, Chloride 104, Carbon Dioxide 20 L, Anion Gap 16.7 H, BUN 45 H D, Creatinine 1.58 H, Estimated Creat Clear 79, Estimated GFR 45 L, Est GFR ( Amer) 54 L, Glucose 187 H, Calcium 8.3 L, Magnesium 2.3 H, Total Bilirubin 0.5, AST 33 D, ALT 30, Alkaline Phosphatase 81, Total Creatine Kinase 181, CK-MB (CK-2) 3.4, CK-MB (CK-2) Rel Index 1.9, Troponin I 0.36 H, Total Protein 7.1, Albumin 3.4, Globulin 3.7 H, Albumin/Globulin Ratio 0.9 L Result diagrams: 03/30/18 19:40 03/30/18 19:40 Orders (Tests/Meds): ED MEDICATIONS Generic Name Dose Route Start Last Admin Trade Name Freq PRN Reason Stop Dose Admin Acetaminophen 650 mg 03/30/18 20:31 Acetaminophen 325mg Tab PO 04/29/18 20:30 Q4HP PRN As Needed for Fever or Pain Carvedilol 12.5 mg 03/30/18 21:00 Coreg 12.5mg Tablet PO 04/29/18 20:59 BID [facility] Ferrous Sulfate 325 mg 03/30/18 21:00 Ferrous Sulfate 325mg Tablet PO 04/29/18 20:59 BID [facility] Gemfibrozil 600 mg 03/30/18 21:00 Lopid 600mg Tablet PO 04/29/18 20:59 BID [facility] Dextrose/Water 500 mls @ 100 mls/hr 03/30/18 20:31 Dextrose 10% In Water 500ml IV 04/29/18 18:14 .Q5H [facility] Insulin Human Lispro 0 unit 03/30/18 20:31 Humalog 100 Units/Ml 3ml Vial ([facility]) SQ 04/29/18 20:30 Q4H [facility] Protocol Non-Formulary Medication 80 mg 03/30/18 21:00 Atorvastatin Calcium [Atorvastatin 80mg Tab] PO 04/29/18 20:59 HS HANNY Non-Formulary Medication 40 mg 03/31/18 09:00 Fluoxetine Hcl [Prozac] PO 04/30/18 08:59 DAILY [facility] Non-Formulary Medication 1 tab 03/31/18 09:00 Lisinopril/Hydrochlorothiazide [Lisinopril-Hctz 20-12.5 Mg Tab] PO 04/30/18 08:59 DAILY [facility] Ondansetron HCl 4 mg 03/30/18 20:31 Zofran 4mg/2ml Vial IV 04/29/18 20:30 Q8HP PRN Nausea Pantoprazole Sodium 40 mg 03/30/18 21:00 Protonix 40mg Vial IV 04/29/18 20:59 HS HANNY Discontinued Medications Generic Name Dose Route Start Last Admin Trade Name Freq PRN Reason Stop Dose Admin Dextrose 50 ml 03/30/18 18:08 03/30/18 18:23 Dextrose 50% 50ml Syringe IVP 03/30/18 18:09 50 ml ONCE ONE Administration Dextrose/Water 500 mls @ 100 mls/hr 03/30/18 18:15 03/30/18 18:23 Dextrose 10% In Water 500ml IV 04/29/18 18:14 100 mls/hr .Q5H HANNY Administration Pantoprazole Sodium 80 mg/ 100 mls @ 10 mls/hr 03/30/18 19:22 Sodium Chloride IV 04/02/18 19:21 .Q10H HANNY Pantoprazole Sodium 80 mg/ 100 mls @ 100 mls/hr 03/30/18 18:22 03/30/18 19:26 Sodium Chloride IV 03/30/18 19:21 Not Given ONCE ONE Pantoprazole Sodium 40 mg 03/30/18 18:26 03/30/18 19:15 Protonix 40mg Vial IV 03/30/18 18:27 40 mg ONCE ONE Administration Sodium Chloride 8 ml 03/30/18 18:26 03/30/18 19:21 Saline Flush 10ml Syringe IV 03/30/18 18:27 8 ml ONCE ONE Administration ORDERS Category Date Time Status CT head/brain wo con Stat Cat Scan 03/30/18 18:11 Taken Chest XR -- portable [XR chest portable] Stat Exams 03/30/18 18:11 Taken Basic Metabolic Panel AMLAB Lab 03/31/18 06:00 Ordered Complete Blood Count Auto Diff AMLAB Lab 03/31/18 06:00 Ordered ECG Request by /Britany Stat Y 03/30/18 18:11 Ordered - Radiology Data #1 Image(s): Chest Image Reviewed: Yes I reviewed the patient's radiology image Preliminary Findings: Normal/NAD - ECG Data Tracing #1 Normal sinus rhythm 82/min baseline artifact no acute finding ECG initial impression date: 03/30/18 ECG initial impression time: 20:10 Medical Decision Narrative: After the patient arrived from the CT scan he did have a blood sugar of 161 he is allowed for p.o. intake. I discussed with Dr. Atkins is agricultural education teacher for Dr. rodriguez agreed to admit the patient for observation. Patient troponin was elevated at 0.36 due to rest most recent GI bleed we are holding his antiplatelet therapy will continue troponin every [address] Atkins with a results. Altered Mental Status HPI - General Stated Complaint: Hypoglycemia Time Seen by Provider: 03/30/18 18:12 Mode of Arrival: EMS Source of Information: Patient, EMS, Medical Record Limitations: Physical Limitations - History of Present Illness HPI narrative: Mr. Lopez is 63 years old white male who is well-known to me from prior ED visit 3 days ago. He has a past medical history of insulin-dependent diabetes mellitus CVA with right hemiparesis and most recently a GI bleed. Today he had altered mental status upon EMS arrival he was found to have blood sugar of 20 he was given an amp of D50 with increase of his blood sugar 2-90 upon arrival to the ED he is down to 91. He is alert with no new focal deficit except for his old right hemiparesis. Upon EMS arrival his blood pressure is 139/99 and his oxygen saturation was 99%. I reviewed his H&P discharge summary and procedure notes: Specimens:: Duodenal bulb biopsies (lobulated duodenitis) Antral biopsy Gastric cardia polyp biopsies Recommendations:: Follow-up pending pathology Ongoing evaluation with regard to gastrointestinal hemorrhage Complications:: MD complaint: altered mental status Onset (ago): hour(s) (Less than 1 hour prior to arrival.) Time: 17:15 Timing confirmed by: family member Severity: severe Consistency of symptoms: constant Context: diabetes, other (Most recently GI bleed on March 28, 2018. ) Associated symptoms: denies other symptoms Treatments prior to arrival: glucose, IV fluid - Related Data Home Medications Medication Instructions Recorded Confirmed Atorvastatin Calcium [Atorvastatin 80 mg PO HS 03/28/18 03/30/18 80mg Tab] Canagliflozin [Invokana] 300 mg PO DAILY 03/28/18 03/30/18 Carvedilol [Carvedilol 12.5mg Tab] 12.5 mg PO BID 03/28/18 03/30/18 Clopidogrel Bisulfate [Plavix 75mg 75 mg PO DAILY 03/28/18 03/30/18 Tab] Fluoxetine HCl [Prozac] 40 mg PO DAILY 03/28/18 03/30/18 Gemfibrozil 600 mg PO BID 03/28/18 03/30/18 Lisinopril/Hydrochlorothiazide 1 tab PO DAILY 03/28/18 03/30/18 [Lisinopril-Hctz 20-12.5 mg Tab] glipiZIDE [Glucotrol XL 5mg tablet] 5 mg PO DAILY 03/28/18 03/30/18 Ferrous Sulfate [Ferrous Sulfate 325 mg PO BID 03/30/18 03/30/18 325mg Tablet] Insulin Lispro [HumaLOG 100 100 unit SQ BID 03/30/18 03/30/18 units/mL 3mL vial ([facility])] Pantoprazole Sodium [Protonix 40mg 40 mg PO DAILY 03/30/18 03/30/18 tablet] Allergies Allergy/AdvReac Type Severity Reaction Status Date / Time Penicillins [PENICILLINS] Allergy Mild Hives Verified 03/29/18 09:36 [facility] History I have reviewed the patient's past medical history: Yes Medical History: Reports:: Cerebrovascular Accident (CVAx4 (last was 2 years ago)), Depression, Diabetes Mellitus Type 2, Hypertension Denies:: Cancer, Diabetes Mellitus Type 1, MRSA, Seizures Other Surgeries: Yes: No Previous Surgery Amputation: No Fractures: No Comment: Right arm reconstruction 1992; teeth extracted 02/2013 - Social History Smoking Status: Former smoker Alcohol Intake: former Occupational Status: unemployed - Psychiatric History Pschychiatric History:: Reports:: Depression Comment: History of mental illnesses ROS Obtained: Yes All systems reviewed & no additional complaints Physical Exam - General General appearance: alert, in no apparent distress - Head Head exam: atraumatic, normocephalic, normal inspection - Eye Eye exam: Present: normal appearance, PERRL, EOMI. Absent: scleral icterus, nystagmus - ENT ENT exam: Present: normal exam, normal oropharynx, mucous membranes moist, TM's normal bilaterally, normal external ear exam - Neck Neck exam: Present: normal inspection, full ROM, trachea midline. Absent: tenderness, meningismus, lymphadenopathy - Chest Chest inspection: Present: normal inspection, symmetric chest wall rise. Absent: tenderness - Respiratory Respiratory exam: Present: normal lung sounds bilaterally. Absent: respiratory distress, wheezes - Cardiovascular Cardiovascular exam: Present: regular rate, normal rhythm, normal heart sounds. Absent: JVD - Abdominal Exam Abdominal exam: Present: soft, normal bowel sounds, other (Equal bilateral femoral pulse). Absent: distention, tenderness, guarding, rebound, rigidity, Oliveira's sign, tenderness at McBurney's Point - exam: Present: normal inspection, normal testicular lie. Absent: testicular tenderness, urethral discharge, scrotal swelling, circumcised - Extremities Exam Extremities exam: Present: normal inspection, full ROM, normal capillary refill. Absent: tenderness, pedal edema, calf tenderness - Back Exam Back exam: Present: normal inspection. Absent: tenderness, CVA tenderness (R), CVA tenderness (L), paraspinal tenderness, vertebral tenderness, sciatic notch tenderness (R) - Neurological Exam Neurological exam: Present: alert, CN II-XII intact, reflexes normal, other (right hemiparesis with contracture with upgoing Babinski on the left.) - Psychiatric Psychiatric exam: Present: normal affect, normal mood - Skin Skin exam: Present: warm, dry, intact, normal color - Lymphatic Lymphatic Findings: no adenopathy
[2018-03-30 19:50] LABS: Basophils % 0.5 % (0.1-2.0); Eosinophils # 0.2 K/mm3 (0.0-0.4); Eosinophils % 2.6 % (0.1-12.0); Hematocrit 29.2 % (42.0-52.0); Hemoglobin 9.5 g/dL (14.1-18.0); Lymphocytes # 0.9 K/mm3 (0.7-4.5); Mean Corpuscular HGB Conc 32.5 g/dL (31.8-35.4); Mean Corpuscular Hemoglobin 28.3 pg (27.0-31.2); Mean Corpuscular Volume 87.2 fl (80-94); Mean Platelet Volume 8.8 fl (7.4-10.4); Monocytes # 0.5 K/mm3 (0.1-1.0); Monocytes % 6.1 % (1.7-9.3); Neutrophils # 6.5 K/mm3 (1.8-7.8); Neutrophils % 79.9 % (37.0-80.0); Platelet Count 333 K/mm3 (142-424); Red Blood Count 3.35 M/mm3 (4.60-6.20); Red Cell Distribution Width 16.4 % (11.5-17.5); White Blood Count 8.1 K/mm3 (4.8-10.8)
[2018-03-30 20:17] LABS: Albumin Level 3.4 gm/dL (3.4-5.0); Albumin/Globulin Ratio 0.9 (1.1-1.8); Anion Gap 16.7 mEq/L (5-15); Bilirubin,Total 0.5 mg/dL (0.2-1.0); Calcium 8.3 mg/dL (8.5-10.1); Globulin 3.7 gm/dl (1.3-3.2); Potassium 4.7 mmoL/L (3.5-5.1); Total Protein,Serum 7.1 gm/dL (6.4-8.2)
[2018-03-31 07:23] LABS: Anion Gap 14.7 mEq/L (5-15); Calcium 8.2 mg/dL (8.5-10.1); Potassium 3.7 mmoL/L (3.5-5.1)
[2018-03-31 07:58] LABS: Basophils # 0.1 K/mm3 (0-0.2); Basophils % 0.7 % (0.1-2.0); Eosinophils # 0.2 K/mm3 (0.0-0.4); Eosinophils % 3.1 % (0.1-12.0); Hematocrit 25.2 % (42.0-52.0); Lymphocytes # 1.2 K/mm3 (0.7-4.5); Lymphocytes % 19.1 K/mm3 (10-50); Mean Corpuscular HGB Conc 32.4 g/dL (31.8-35.4); Mean Corpuscular Hemoglobin 27.9 pg (27.0-31.2); Mean Corpuscular Volume 86.2 fl (80-94); Monocytes # 0.4 K/mm3 (0.1-1.0); Monocytes % 6.5 % (1.7-9.3); Neutrophils # 4.5 K/mm3 (1.8-7.8); Neutrophils % 70.6 % (37.0-80.0); Platelet Count 305 K/mm3 (142-424); Red Blood Count 2.92 M/mm3 (4.60-6.20); Red Cell Distribution Width 16.5 % (11.5-17.5); White Blood Count 6.3 K/mm3 (4.8-10.8)
[2018-03-31 08:16] LABS: Hemoglobin 8.2 g/dL (14.1-18.0)
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
--- NOTE | 2018-03-31 11:51 | Pharmacy Consult Notes ---
[facility] Pharmacy VTE Monitoring - Patient Demographics Admission date: 03/30/18 Report Date: 03/31/18 Time: 11:51 Allergies/Adverse Reactions: Patient Allergies Penicillins [PENICILLINS] Allergy (Mild, Verified 03/29/18 09:36) Hives Height: 1.83 m Weight: 94.035 kg Patient Problems: Current Active Problems (This Medical Record has been edited. Action required.) Hypoglycemia (Acute) IDDM (insulin dependent diabetes mellitus) (Acute) CVA, old, alterations of sensations (Acute) Elevated troponin (Acute) Hypoglycemia (Acute) Anemia due to blood loss (Acute) Upper GI bleed (Acute) - VTE Risk Labs: VTE Related Lab Results Hgb 8.2 g/dL (14.1-18.0) L D 03/31/18 06:50 Hct 25.2 % (42.0-52.0) L 03/31/18 06:50 Plt Count 305 K/mm3 (142-424) 03/31/18 06:50 BUN 41 mg/dL (7-18) H 03/31/18 06:50 Creatinine 1.71 mg/dL (0.70-1.30) H 03/31/18 06:50 Estimated Creat Clear 60 mL/min (0-300) 03/31/18 06:50 Was VTE Risk Assessment Performed: Yes VTE Score: 1 VTE Risk Level: Very Low Risk - Prophylaxis VTE Prophylaxis Ordered?: Yes Types of VTE Prophylaxis: TEDS Knee High Location of Applied Device: Bilateral Lower Extremeties
--- NOTE | 2018-04-01 08:17 | Progress Note ---
<Erendira Silva - Last Filed: 04/01/18 08:14> Internal Medicine - PN: Subj *Date: 04/01/18 *Time: 08:14 Interval history: Patient states he is feeling better this morning. He denies any pain. He slept well last night. Exam Vital signs and Labs for Last 24 Hours: Temp Pulse Resp BP Pulse Ox 98.5 F 85 16 106/54 L 98 04/01/18 08:00 04/01/18 08:00 04/01/18 08:00 04/01/18 08:00 04/01/18 08:00 Laboratory Results - last 24 hr 03/31/18 06:50: Hgb 8.2 L D 03/31/18 17:05: POC Glucose 254 H 03/31/18 20:30: POC Glucose 213 H 04/01/18 06:23: POC Glucose 245 H I & O for Last 24 hours: Intake & Output 03/29/18 03/30/18 03/31/18 04/01/18 11:59 11:59 11:59 11:59 Intake Total 1559 / 1559 520 / 520 Output Total 1575 / 1575 1974 / 1974 Balance -16 / -16 -1455 / -1455 Weight 207 lb 5 oz 207 lb 4.987 oz Radiology Reports for the Last 24 Hours: Stress test 1. Prominent perfusion defect is seen at the inferior lateral wall. Suspect primarily fixed defect reflecting prior inferior lateral wall [place]. However there does appear to be slight reversibility character at the margins of this defect suspect for a rim of stress-induced ischemia, particularly lateral wall.. (. - The reversible pattern most notable at lateral wall 3 o'clock position short axis view) 2. Notable Diminished wall motion at the inferior lateral wall, corresponds with the above perfusion/defect /abnormality 3. Ejection fraction 50% Somewhat surprised ejection fraction still 50% given this overall pattern Correlation with clinical and laboratory findings required - Constitutional no acute distress - *Routine Respiratory Exam Present: CTA bilaterally - *Routine Cardiovascular Exam Present: RRR - *Routine Abdominal Exam Present: soft, normoactive bowel sounds. Absent: tenderness - *Routine Extremities Exam Absent: cyanosis, clubbing, edema Assessment and Plan (1) Hypoglycemia Current visit: Yes Status: Acute Category: Medical Code(s): E16.2 - Hypoglycemia, unspecified (2) Elevated troponin Current visit: Yes Status: Acute Category: Medical Code(s): R74.8 - Abnormal levels of other serum enzymes (3) Gastrointestinal hemorrhage Current visit: No Status: Acute Category: Medical Code(s): K92.2 - Gastrointestinal hemorrhage, unspecified (4) CVA, old, cognitive deficits Current visit: No Status: Chronic Category: Medical Code(s): I69.319 - Unspecified symptoms and signs involving cognitive functions following cerebral infarction (5) Diabetes Current visit: No Status: Chronic Category: Medical Code(s): E11.9 - Type 2 diabetes mellitus without complications (6) Abnormal stress test Current visit: Yes Status: Acute Category: Medical Code(s): R94.39 - Abnormal result of other cardiovascular function study - Assessment and plan all Dx Assessment and Plan for all problems:: Patient had an abnormal stress test. Cardiology has seen the patient and will perform a heart cath today. Hemoglobin was lower yesterday. Will discuss with Dr. Atkins. <Odilon Atkins - Last Filed: 04/01/18 17:15> Exam Vital signs and Labs for Last 24 Hours: Temp Pulse Resp BP Pulse Ox 97.6 F 70 16 140/68 99 04/01/18 14:50 04/01/18 16:00 04/01/18 15:35 04/01/18 15:35 04/01/18 15:35 Laboratory Results - last 24 hr 03/31/18 17:05: POC Glucose 254 H 03/31/18 20:30: POC Glucose 213 H 04/01/18 06:23: POC Glucose 245 H 04/01/18 08:58: WBC 6.1, RBC 2.92 L, Hgb 8.3 L, Hct 25.4 L, MCV 87.2, MCH 28.6, MCHC 32.8, RDW 16.2, Plt Count 271, MPV 9.8, Neut % (Auto) 69.3, Lymph % (Auto) 19.0, [place] % (Auto) 7.4, Eos % (Auto) 3.7, Baso % (Auto) 0.5, Neut # (Auto) 4.2, Lymph # (Auto) 1.2, [place] # (Auto) 0.5, Eos # (Auto) 0.2, Baso # (Auto) 0.0 04/01/18 08:58: Sodium 137, Potassium 4.4, Chloride 105, Carbon Dioxide 22, Anion Gap 14.4, BUN 38 H, Creatinine 1.68 H, Estimated Creat Clear 61, Estimated GFR 42 L, Est GFR ( Amer) 51 L, Glucose 259 H, Calcium 8.5 04/01/18 16:46: POC Glucose 214 H I & O for Last 24 hours: Intake & Output 03/30/18 03/31/18 04/01/18 04/02/18 11:59 11:59 11:59 11:59 Intake Total 1559 / 1559 520 / 520 Output Total 1575 / 1575 1974 Balance -16 / -16 -1455 / -1455 Weight 207 lb 5 oz 207 lb 4.987 oz Assessment and Plan (1) Hypoglycemia Current visit: Yes Status: Acute Category: Medical Code(s): E16.2 - Hypoglycemia, unspecified (2) Elevated troponin Current visit: Yes Status: Acute Category: Medical Code(s): R74.8 - Abnormal levels of other serum enzymes (3) Gastrointestinal hemorrhage Current visit: No Status: Acute Category: Medical Code(s): K92.2 - Gastrointestinal hemorrhage, unspecified (4) CVA, old, cognitive deficits Current visit: No Status: Chronic Category: Medical Code(s): I69.319 - Unspecified symptoms and signs involving cognitive functions following cerebral infarction (5) Diabetes Current visit: No Status: Chronic Category: Medical Code(s): E11.9 - Type 2 diabetes mellitus without complications (6) Abnormal stress test Current visit: Yes Status: Acute Category: Medical Code(s): R94.39 - Abnormal result of other cardiovascular function study - Assessment and plan all Dx Assessment and Plan for all problems:: Patient seen and examined this AM. Hypoglycemia has resolved. Awaiting [facility] today. Will continue sliding scale insulin for now. Repeat labs pending.
[2018-04-01 09:08] LABS: Basophils % 0.5 % (0.1-2.0); Eosinophils # 0.2 K/mm3 (0.0-0.4); Eosinophils % 3.7 % (0.1-12.0); Hematocrit 25.4 % (42.0-52.0); Hemoglobin 8.3 g/dL (14.1-18.0); Lymphocytes # 1.2 K/mm3 (0.7-4.5); Mean Corpuscular HGB Conc 32.8 g/dL (31.8-35.4); Mean Corpuscular Hemoglobin 28.6 pg (27.0-31.2); Mean Corpuscular Volume 87.2 fl (80-94); Mean Platelet Volume 9.8 fl (7.4-10.4); Monocytes # 0.5 K/mm3 (0.1-1.0); Monocytes % 7.4 % (1.7-9.3); Neutrophils # 4.2 K/mm3 (1.8-7.8); Neutrophils % 69.3 % (37.0-80.0); Platelet Count 271 K/mm3 (142-424); Red Blood Count 2.92 M/mm3 (4.60-6.20); Red Cell Distribution Width 16.2 % (11.5-17.5); White Blood Count 6.1 K/mm3 (4.8-10.8)
[2018-04-01 09:13] LABS: Anion Gap 14.4 mEq/L (5-15); Calcium 8.5 mg/dL (8.5-10.1); Potassium 4.4 mmoL/L (3.5-5.1)
--- NOTE | 2018-04-01 10:05 | Progress Note ---
Subjective Date: 04/01/18 Time: 10:03 Principal diagnosis: Abnormal stress Interval history: 63-year-old white male in bed in no acute distress. Slept well overnight with no complaints. Questions answered regarding cardiac catheterization today. Exam Vital signs and Labs for Last 24 Hours: Temp Pulse Resp BP Pulse Ox 98.5 F 85 16 106/54 L 98 04/01/18 08:00 04/01/18 08:00 04/01/18 08:00 04/01/18 08:00 04/01/18 08:00 Laboratory Results - last 24 hr 03/31/18 17:05: POC Glucose 254 H 03/31/18 20:30: POC Glucose 213 H 04/01/18 06:23: POC Glucose 245 H 04/01/18 08:58: WBC 6.1, RBC 2.92 L, Hgb 8.3 L, Hct 25.4 L, MCV 87.2, MCH 28.6, MCHC 32.8, RDW 16.2, Plt Count 271, MPV 9.8, Neut % (Auto) 69.3, Lymph % (Auto) 19.0, [place] % (Auto) 7.4, Eos % (Auto) 3.7, Baso % (Auto) 0.5, Neut # (Auto) 4.2, Lymph # (Auto) 1.2, [place] # (Auto) 0.5, Eos # (Auto) 0.2, Baso # (Auto) 0.0 04/01/18 08:58: Sodium 137, Potassium 4.4, Chloride 105, Carbon Dioxide 22, Anion Gap 14.4, BUN 38 H, Creatinine 1.68 H, Estimated Creat Clear 61, Estimated GFR 42 L, Est GFR ( Amer) 51 L, Glucose 259 H, Calcium 8.5 I & O for Last 24 hours: Intake & Output 03/29/18 03/30/18 03/31/18 04/01/18 11:59 11:59 11:59 11:59 Intake Total 1559 / 1559 520 / 520 Output Total 1575 / 1575 1974 Balance -16 / -16 -1455 / -1455 Weight 207 lb 5 oz 207 lb 4.987 oz - *Routine Respiratory Exam Present: CTA bilaterally. Absent: accessory muscle use, rales, rhonchi, wheezes - *Routine Cardiovascular Exam Present: RRR. Absent: murmur, gallop, rubs - *Routine Neurological Exam Present: alert, oriented X3, moving all extremities Progress Note: A&P (1) Hypoglycemia Status: Acute Current Visit: Yes (2) Elevated troponin Status: Acute Current Visit: Yes (3) Gastrointestinal hemorrhage Status: Acute Current Visit: No (4) CVA, old, cognitive deficits Status: Chronic Current Visit: No (5) Diabetes Status: Chronic Current Visit: No (6) Abnormal stress test Status: Acute Current Visit: Yes Assessment and Plan for All Diagnoses:: Proceed with left heart catheterization today keeping in mind that the patient has had a recent GI bleed and slight decrease in hemoglobin since admission, now 8.3 this a.m. Kidney functions have improved overnight. Further recommendations to follow pending cardiac catheterization.
--- NOTE | 2018-04-01 10:35 | Cardiology Report ---
PROCEDURE: 2-D M-mode and color Doppler study INDICATIONS FOR THE TEST: Chest pain COPD Heart Murmur Tobacco SmokingEX Palpitations Fatigue Syncope Edema+ Hypertension+Diabetes Mellitus+ Rheumatic Fever SOB+PINEAD Obesity+Hyperlipidemia+ Family History HD Additional History CVA PATIENT INFORMATION HEIGHT: 72 WEIGHT: 207 GENDER: Male B/P: 117/61 2-D/M-MODE INTERPRETATION: 2-D MEASUREMENTS OBSERVED VALUES IN CMS Right Ventricular Dimension (RVDd) 2.7 Interventricular Septum (Thickness)(IVsd) 1.0 Left Ventricular Internal Dimensions(LVIDd) 3.7 Left Ventricular Posterior Wall (Thickness)(LVPWd) 1.1 Aortic Root 3.8 Aortic Cusp Separation 2.0 Left Atrial Dimensions (LAD) 4.1 2D 1. Left atrium is mildly enlarged, left ventricle is normal size, mild concentric left ventricular hypertrophy, visually estimated ejection fraction 50% with no regional wall motion abnormality. 2. The right atrium and right ventricle are normal size and contractility. 3. The aortic valve is minimally thickened and fibrosed. 4. The mitral and tricuspid valvular grossly normal. 5. The pulmonic valve is poorly visualized. 6. No significant pericardial effusion noted. DOPPLER INTERROGATION: Doppler interrogation of the aortic, mitral and tricuspid valvular presence of mild mitral and tricuspid regurgitation, tricuspid regurgitation jet velocity is inadequate for calculation of the right ventricular systolic pressure, Doppler evidence of impaired LV relaxation seen, there is no tissue Doppler performed. CONCLUSION: 1. Mildly enlarged left atrium, normal left ventricular size visually estimated ejection fraction 50% with no regional wall motion abnormality, Doppler evidence of impaired LV relaxation seen, there is no tissue Doppler performed. 2. Mild mitral and tricuspid regurgitation 3. No significant pericardial effusion noted.
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
[2018-04-02 09:15] VITALS: BP 120/51
--- NOTE | 2018-04-02 09:27 | Progress Note ---
Subjective Date: 04/02/18 Time: 09:23 Principal diagnosis: Abnormal stress Interval history: 63-year-old white male in bed in no acute distress. Denies any chest pain. States he is ready to go home and see as pets. Patient to have outpatient workup for GI bleed. Exam Vital signs and Labs for Last 24 Hours: Temp Pulse Resp BP Pulse Ox 97.9 F 85 18 120/51 L 99 04/02/18 08:00 04/02/18 08:00 04/02/18 08:00 04/02/18 08:00 04/02/18 08:00 Laboratory Results - last 24 hr 04/01/18 16:46: POC Glucose 214 H 04/01/18 21:13: POC Glucose 181 H 04/02/18 06:53: POC Glucose 227 H I & O for Last 24 hours: Intake & Output 03/30/18 03/31/18 04/01/18 04/02/18 11:59 11:59 11:59 11:59 Intake Total 1559 / 1559 520 / 520 840 / 840 Output Total 1575 / 1575 1974 / 1974 200 / 200 Balance -16 / -16 -1455 / -1455 640 / 640 Weight 207 lb 5 oz 207 lb 4.987 oz - *Routine Respiratory Exam Present: CTA bilaterally. Absent: accessory muscle use, rales, rhonchi, wheezes - *Routine Cardiovascular Exam Present: RRR. Absent: murmur, gallop, rubs Progress Note: A&P (1) Hypoglycemia Status: Acute Current Visit: Yes (2) Elevated troponin Status: Acute Current Visit: Yes (3) Gastrointestinal hemorrhage Status: Acute Current Visit: No (4) CVA, old, cognitive deficits Status: Chronic Current Visit: No (5) Diabetes Status: Chronic Current Visit: No (6) Abnormal stress test Status: Acute Current Visit: Yes Assessment and Plan for All Diagnoses:: CAD as noted below with recommendations for medical therapy. Patient is low and acceptable risk from a cardiology standpoint to proceed with further endoscopic evaluation of GI bleed. Once patient's GI bleed source has been found or stabilized would reconsider low-dose aspirin and/or Plavix therapy for his coronary artery disease. Continue current medical therapy including atorvastatin, Coreg, lisinopril and hydrochlorothiazide. Follow-up with cardiology in 1 week. Cardiac cath report, 04/01/18: ANGIOGRAPHIC RESULTS: 1. The left main artery normal 2. The left anterior descending artery is a very large vessel which wraps the apex. It also gives rise to 2 very large multi branching diagonal arteries which supply the majority of the lateral wall. Proximally in the LAD there is mild less than 10% luminal irregularities while the mid LAD has long 30% stenoses. The large multi branching diagonal arteries have 20 and 30% stenoses 3. The circumflex artery is probably a dominant vessel and gives rise to a 1.5 mm first obtuse marginal artery which has an ostial 80-90% stenosis. Immediately distal to this obtuse marginal artery the circumflex artery is occluded which gives rise to one 3 mm second obtuse marginal artery. The second obtuse marginal artery is occluded and fills via left to left collaterals from the large diagonal arteries 4. The right coronary artery is a nondominant vessel. There is a proximal large sinoatrial branch which has a 50% proximal stenosis. This sends over a scant Kugel collateral to the second obtuse marginal artery 5. The ST ventriculogram reveals preserved ejection fraction is been 60% 6. The left ventricular end-diastolic pressure 20 mmHg IMPRESSION: 1. Chronically occluded second obtuse marginal artery which fills via left to left collaterals from an abnormally large wraparound LAD with large multi branching diagonal arteries 2. Preserved ejection fraction 3. Mildly elevated LVEDP PLAN: 1. Although the circumflex/obtuse marginal artery could be percutaneously open I would recommend medical management at this time. Patient is not experiencing any angina pectoris and is otherwise hemodynamically stable. Patient's primary issue appears to be that of GI bleeding. Revascularizing the second obtuse marginal artery would not provide any clinical benefit to this patient but would in fact be detrimental by causing the mandatory need of dual antiplatelet therapy. Because of this I would recommend patient continue with medical management and less ischemic mitral regurgitation develops in the future or other hemodynamic consequences 2. Risk factor modification 3. Patient is a low and acceptable risk to proceed with colonoscopy
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
== END 2018-04-02 10:25 | disposition home or self-care (01) ==
LOC: 2ND 18:03 → ER 18:03 → 2ND 20:54
PROVIDERS: ADMIT Family Medicine; ATTEND Family Medicine